=== PATIENT | female | born 1970 | race Caucasian/White ===

== ENCOUNTER 2017-03-24 20:04 | Emergency (ER) | payer OTHER ==
[2017-03-24 20:29] VITALS: BP 153/79; PULSE 81; RESP 16; TEMP 98.3
[2017-03-24] MEDS ORDERED: HYDROcodone/APAP 5-325MG 1 EACH TAB PO STA (20:40)
--- NOTE | 2017-03-24 20:44 | ED ---
Lower Extremity Injury HPI - General Source: patient, RN notes reviewed Mode of arrival: wheelchair Limitations: no limitations - History of Present Illness MD Complaint: foot injury <Yovany Ware - Last Filed: 03/24/17 21:23> <Nathan Mcclain - Last Filed: 03/25/17 21:29> - General Chief Complaint: Extremity Injury, Lower Stated Complaint: broken foot/foot pain Time Seen by Provider: 03/24/17 20:36 - History of Present Illness Initial Comments: This is a pleasant 39-year-old female presents emergency department after being stopped on her right foot by a horse. Patient states this happened about 7 PM. Patient cannot put any weight on the foot. Pain is sharp in nature, no radiation, movement and attempted ambulation exacerbates the pain. Rest does alleviate the pain. Patient denies any other injuries. This is the patient's animal. Patient denies any numbness or tingling. No distal or proximal injuries. (Yovany Ware) - Related Data Home Medications Medication Instructions Recorded Confirmed Atenolol [Tenormin] 25 mg PO DAILY 03/24/17 03/24/17 Ibuprofen [Motrin] 200 - 400 mg PO DAILY PRN 03/24/17 03/24/17 Loratadine/Pseudoephedrine 1 tab PO Q12HR PRN 03/24/17 03/24/17 [Alavert D-12 Allergy-Sinus Tab] Multivitamins, Thera [Multivitamin 1 tab PO DAILY 03/24/17 03/24/17 (formulary)] Seasonale Control 1 tab PO DAILY 03/24/17 03/24/17 Previous Rx's Medication Instructions Recorded HYDROcodone/APAP 5-325MG [[place] 5] 1 each PO Q4HR PRN #20 tab 03/24/17 Allergies Allergy/AdvReac Type Severity Reaction Status Date / Time meperidine [From Demerol] AdvReac Unknown Verified 03/24/17 20:38 Review of Systems ROS Other: All systems not noted in ROS Statement are negative. <Yovany Ware - Last Filed: 03/24/17 21:23> ROS Other: All systems not noted in ROS Statement are negative. <Nathan Mcclain - Last Filed: 03/25/17 21:29> ROS Statement: Those systems with pertinent positive or pertinent negative responses have been documented in the HPI. Past Medical History Past Medical History: No Reported History History of Any Multi-Drug Resistant Organisms: None Reported Past Surgical History: Section Additional Past Surgical History / Comment(s): pneumothorax Smoking Status: Never smoker Past Alcohol Use History: None Reported Past Drug Use History: None Reported <Yovany Ware - Last Filed: 03/24/17 21:23> General Exam Limitations: no limitations General appearance: alert, in distress Head exam: Present: atraumatic, normocephalic, normal inspection Eye exam: Present: normal appearance, EOMI Neck exam: Present: normal inspection, full ROM Respiratory exam: Present: normal lung sounds bilaterally. Absent: respiratory distress, wheezes, rales, rhonchi, stridor Cardiovascular Exam: Present: regular rate, normal rhythm, normal heart sounds. Absent: systolic murmur, diastolic murmur, rubs, gallop, clicks Right Ankle exam: Present: normal inspection, full ROM. Absent: tenderness Foot/Toe exam: Present: tenderness, ecchymosis. Absent: normal inspection, full ROM, swelling, abrasion, laceration, deformity, crepitus, dislocation, erythema, foreign body, calcaneal tenderness, tenderness at base of 5th metatarsal, nail avulsion, subungual hematoma Neurovascular tendon exam: Present: no vascular compromise. Absent: pulse deficit, abnormal cap refill, motor deficit, sensory deficit, tendon deficit, extremity cold to touch, pallor, decreased fine/light touch, foot drop, peroneal nerve deficit, significant pain with passive ROM of distal joint Neurological exam: Present: alert, oriented X3, CN II-XII intact, other ( Patient unable to ambulate). Absent: motor sensory deficit Psychiatric exam: Present: normal affect, normal mood Skin exam: Present: warm, dry, intact, normal color. Absent: rash <Yovany Ware - Last Filed: 03/24/17 21:23> <Nathan Mcclain - Last Filed: 03/25/17 21:29> - General Exam Comments Initial Comments: Social well-developed, well-nourished 47-year-old female in moderate distress due to pain (Yovany Ware) Procedures <Yovany Ware - Last Filed: 03/24/17 21:23> <Nathan Mcclain - Last Filed: 03/25/17 21:29> - Procedures Initial comment: Patient placed in a short leg OCL splint. Posterior mold. Distal neurovascular status intact post-application. (Yovany Ware) Medical Decision Making - Differential Diagnosis Fracture versus contusion <Yovany Ware - Last Filed: 03/24/17 21:23> <Nathan Mcclain - Last Filed: 03/25/17 21:29> - Medical Decision Making Foot fracture versus foot contusion discuss signs and symptoms of compartment syndrome. Discuss follow-up and return parameters (Yovany Ware) I saw this patient in conjunction with the physician marketing assistant. I performed independent history and physical exam. Agree with case management. I also participated in the splint placement. (Nathan Mcclain) - Radiology Data Patient has cortical irregularities of the proximal second, third, and fourth metatarsal bones. No other fracture noted by me. Awaiting radiology interpretation. (Yovany Ware) Disposition Time of Disposition: 21:24 <Yovany Ware - Last Filed: 03/24/17 21:23> <Nathan Mcclain - Last Filed: 03/25/17 21:29> Clinical Impression: Closed fracture of second metatarsal bone of right foot, Closed fracture of third metatarsal bone of right foot, Closed fracture of fourth metatarsal of right foot Disposition: HOME SELF-CARE Condition: Good Instructions: Crutch Instructions (ED), Foot Fracture in Adults (ED) Additional Instructions: Follow-up with the orthopedic physician on Monday as directed. Return to the ER immediately if numbness or tingling develops or the toes changed color. Return to the ER at once if the symptoms worsen or problems or difficulties arise. Prescriptions: HYDROcodone/APAP 5-325MG [[place] 5] 1 each PO Q4HR PRN #20 tab PRN Reason: Pain Referrals: Jere Martin MD [STAFF PHYSICIAN] - 03/27/17
--- NOTE | 2017-03-24 21:14 | XR ---
EXAMINATION TYPE: XR foot complete RT DATE OF EXAM: 03/24/2017 COMPARISON: NONE HISTORY: Pain, horse stepped on foot TECHNIQUE: Three-view right foot FINDINGS: Transverse fractures of the proximal metaphysis of the second third and fourth digits are p resent. Clinical correlation for Lisfranc fracture should be performed. Fractures appear nondisplaced . Soft tissues appear normal. IMPRESSION: 1. Clinical correlation recommended for Lisfranc fracture. Transverse fractures of the second third and fourth proximal metatarsal are present.
== END 2017-03-24 21:27 | disposition home or self-care (01) ==
LOC: EC 20:04
DX: S92.331A Displaced fracture of third metatarsal bone, right foot, initial encounter for closed fracture (principal); S92.341A Displaced fracture of fourth metatarsal bone, right foot, initial encounter for closed fracture; Z79.899 Other long term (current) drug therapy; Z79.3 Long term (current) use of hormonal contraceptives; Z88.5 Allergy status to narcotic agent; X58.XXXA Exposure to other specified factors, initial encounter
CPT/HCPCS: 29515; 99283

== ENCOUNTER 2018-02-26 13:11 | Emergency (ER) | payer OTHER ==
[2018-02-26] MEDS ORDERED: MORPHINE SULFATE 4 MG/ML SYRINGE IV STA (14:30)
[2018-02-26] MEDS ORDERED: SODIUM CHLORIDE 0.9% 500 ML IV STA (14:30)
[2018-02-26] MEDS ORDERED: SODIUM CHLORIDE 0.9% 1,000 ML IV STA (14:30)
[2018-02-26] MEDS ORDERED: METOCLOPRAMIDE 5 MG/ML 2 ML VIAL IVP STA (14:30)
--- NOTE | 2018-02-26 14:34 | ED ---
General Adult HPI - General Chief complaint: Headache Stated complaint: headache Time Seen by Provider: 02/26/18 14:18 Source: patient Mode of arrival: ambulatory Limitations: no limitations - History of Present Illness Initial comments: 48 years O female presents with a headache, headache started 3 the morning, she has no history of migraines denies any trauma to the head she does have a family history of brain aneurysms did try Excedrin and Motrin at home without great deal of benefit also complaining about some discomfort in the epigastric area she said is not pain she feels just nauseous and some pressure in her abdomen. No diarrhea no constipation she has no prior history of abdominal surgeries him in review of system is unremarkable - Related Data Home Medications Medication Instructions Recorded Confirmed Atenolol [Tenormin] 25 mg PO DAILY 03/24/17 02/26/18 Seasonale Control 1 tab PO DAILY 03/24/17 02/26/18 buPROPion HCL [Wellbutrin XL] 300 mg PO DAILY 02/26/18 02/26/18 Previous Rx's Medication Instructions Recorded Amoxicillin 500 mg PO Q8H #30 capsule 02/26/18 predniSONE 20 mg PO DAILY #5 tab 02/26/18 Allergies Allergy/AdvReac Type Severity Reaction Status Date / Time meperidine [From Demerol] AdvReac Unknown Verified 02/26/18 14:21 Review of Systems ROS Statement: Those systems with pertinent positive or pertinent negative responses have been documented in the HPI. ROS Other: All systems not noted in ROS Statement are negative. Past Medical History Past Medical History: No Reported History History of Any Multi-Drug Resistant Organisms: None Reported Past Surgical History: Section Additional Past Surgical History / Comment(s): pneumothorax Past Psychological History: Anxiety, Depression Smoking Status: Never smoker Past Alcohol Use History: None Reported Past Drug Use History: None Reported General Exam - General Exam Comments Initial Comments: General: The patient is awake and alert, in mild distress from headache Skin: Skin is warm and dry and no rashes or lesions are noted. Eye: Pupils are equal, round and reactive to light, extra-ocular movements are intact; there is normal conjunctiva bilaterally. Ears, nose, mouth and throat: signs of sinusitis, over the frontal and right maxillary sinus Neck: The neck is supple, there is no tenderness, no signs of any meningitis or neck stiffness noticed Cardiovascular: There is a regular rate and rhythm. No murmur, rub or gallop is appreciated. Respiratory: To auscultation bilateral, no wheezing no rhonchi no distress respiratory acosta noticed Gastrointestinal: Soft, non-distended, bowel sounds no guarding no rebounds no signs of any peritonitis Back: There is no tenderness to palpation in the midline. There is no obvious deformity. Musculoskeletal: Normal ROM, no tenderness, There is no pedal edema. There is no calf tenderness or swelling. No cords were appreciated. Neurological: CN II-XII intact, Cranial nerves III through XII are intact. There are no obvious motor or sensory deficits. Coordination appears grossly intact. Speech is normal. Psychiatric: Cooperative, appropriate mood & affect, normal judgment. Limitations: no limitations Course Vital Signs 02/26/18 14:07 Temperature 97.7 F Pulse Rate 74 Respiratory 18 Rate Blood Pressure 136/81 O2 Sat by Pulse 100 Oximetry Abdomen she is reassessed at term 1615, head CT is normal chest x-rays unremarkable no free air under under the diaphragm noticed CBC, compressive metabolic panel, C-reactive protein are all within normal range. She feels lot better she did go home I do suspect sinusitis she is tender over frontal as well as right maxillary sinus she be given a course of amoxicillin 500 mg 3 times a day for next 10 days and prednisone 20 mg daily for next 5 days and she is advised to take Tylenol 1 g by mouth every 8 as needed Medical Decision Making - Lab Data Result diagrams: 02/26/18 14:44 02/26/18 14:44 Lab Results 02/26/18 02/26/18 Range/Units 14:44 14:44 WBC 8.9 (3.8-10.6) k/uL RBC 4.96 (3.80-5.40) m/uL Hgb 14.6 (11.4-16.0) gm/dL Hct 42.5 (34.0-46.0) % MCV 85.7 (80.0-100.0) fL MCH 29.4 (25.0-35.0) pg MCHC 34.3 (31.0-37.0) g/dL RDW 12.5 (11.5-15.5) % Plt Count 291 (150-450) k/uL Neutrophils % 75 % Lymphocytes % 15 % Monocytes % 6 % Eosinophils % 1 % Basophils % 1 % Neutrophils # 6.7 (1.3-7.7) k/uL Lymphocytes # 1.3 (1.0-4.8) k/uL Monocytes # 0.6 (0-1.0) k/uL Eosinophils # 0.1 (0-0.7) k/uL Basophils # 0.1 (0-0.2) k/uL Sodium 141 (137-145) mmol/L Potassium 3.7 (3.5-5.1) mmol/L Chloride 102 (98-107) mmol/L Carbon Dioxide 25 (22-30) mmol/L Anion Gap 14 mmol/L BUN 14 (7-17) mg/dL Creatinine 0.78 (0.52-1.04) mg/dL Est GFR (CKD-EPI)AfAm >90 (>60 ml/min/1.73 sqM) Est GFR (CKD-EPI)NonAf 90 (>60 ml/min/1.73 sqM) Glucose 86 (74-99) mg/dL Calcium 9.2 (8.4-10.2) mg/dL Total Bilirubin 0.6 (0.2-1.3) mg/dL AST 27 (14-36) U/L ALT 30 (9-52) U/L Alkaline Phosphatase 69 (38-126) U/L C-Reactive Protein 9.0 (<10.0) mg/L Total Protein 7.1 (6.3-8.2) g/dL Albumin 4.2 (3.5-5.0) g/dL Amylase 63 (30-110) U/L Lipase 66 (23-300) U/L Disposition Clinical Impression: Headache, Abdominal pain, Sinusitis Disposition: HOME SELF-CARE Condition: Good Instructions: Acute Headache (ED), Abdominal Pain (ED) Prescriptions: Amoxicillin 500 mg PO Q8H #30 capsule predniSONE 20 mg PO DAILY #5 tab Is patient prescribed a controlled substance at d/c from ED?: No If prescribed controlled substance>3 days was MAPS reviewed?: No When asked, does pt state using other controlled substances?: No Referrals: Christ,Felipa, DO [Primary Care Provider] - 1-2 days
[2018-02-26 15:07] LABS: Basophils # (A) 0.1 k/uL (0-0.2); Basophils % (A) 1 %; Eosinophils # (A) 0.1 k/uL (0-0.7); Eosinophils % (A) 1 %; HCT 42.5 % (34.0-46.0); HGB 14.6 gm/dL (11.4-16.0); Lymphocytes # (A) 1.3 k/uL (1.0-4.8); Lymphocytes % (A) 15 %; MCH 29.4 pg (25.0-35.0); MCHC 34.3 g/dL (31.0-37.0); MCV 85.7 fL (80.0-100.0); Monocytes # (A) 0.6 k/uL (0-1.0); Monocytes % (A) 6 %; Neutrophils # (A) 6.7 k/uL (1.3-7.7); Neutrophils % (A) 75 %; Platelet Count 291 k/uL (150-450); RBC 4.96 m/uL (3.80-5.40); RDW 12.5 % (11.5-15.5); WBC 8.9 k/uL (3.8-10.6)
[2018-02-26 15:15] LABS: ALT 30 U/L (9-52); AST 27 U/L (14-36); Albumin 4.2 g/dL (3.5-5.0); Alkaline Phosphatase 69 U/L (38-126); Amylase 63 U/L (30-110); Anion Gap 14 mmol/L; Blood Urea Nitrogen 14 mg/dL (7-17); Calcium 9.2 mg/dL (8.4-10.2); Carbon Dioxide 25 mmol/L (22-30); Chloride 102 mmol/L (98-107); Glucose 86 mg/dL (74-99); Lipase 66 U/L (23-300); Potassium 3.7 mmol/L (3.5-5.1); Sodium 141 mmol/L (137-145); Total Bilirubin 0.6 mg/dL (0.2-1.3); Total Protein 7.1 g/dL (6.3-8.2)
--- NOTE | 2018-02-26 15:30 | XR ---
EXAMINATION TYPE: XR KUB DATE OF EXAM: 02/26/2018 COMPARISON: NONE HISTORY: abdominal pain TECHNIQUE: One view abdominal series FINDINGS: The osseous structures are intact. The bowel gas pattern is nonspecific. Lung bases are clear. Cupola Tapper Helper heather deformity of the right rib cage. IMPRESSION: 1. Nonspecific abdomen.
--- NOTE | 2018-02-26 16:08 | CT ---
EXAMINATION TYPE: CT brain wo con DATE OF EXAM: 02/26/2018 COMPARISON: NONE HISTORY: Headache today. CT DLP: 1047.2 mGycm. Automated Exposure Control for Dose Reduction was Utilized. TECHNIQUE: CT scan of the head is performed without contrast. FINDINGS: There is no acute intracranial hemorrhage, mass effect, or midline shift identified. The dural reflection is seen along the left temporal lobe. The ventricles and sulci are within normal li mits in size. The globes are intact and the visualized sinuses are clear. IMPRESSION: No acute intracranial hemorrhage, mass effect, or midline shift is seen.
[2018-02-26 16:40] VITALS: TEMP 97.2
[2018-02-26 16:50] VITALS: BP 122/77; PULSE 74; RESP 18
== END 2018-02-26 16:50 | disposition home or self-care (01) ==
LOC: EC 13:11
DX: J32.9 Chronic sinusitis, unspecified (principal); R10.9 Unspecified abdominal pain; F41.9 Anxiety disorder, unspecified; F32.9 Major depressive disorder, single episode, unspecified; Z79.899 Other long term (current) drug therapy; Z88.5 Allergy status to narcotic agent
CPT/HCPCS: 36415; 80053; 82150; 83690; 85025; 86140; 74018; 70450; 99284; 96374; 96375; 96361 ×2; J2270; J2765

== ENCOUNTER → 2019-07-25 | Outpatient (CLI) | payer BC ==
--- NOTE | 2019-08-01 14:10 | MM ---
Reason for exam: screening (asymptomatic). Last mammogram was performed 1 year and 4 months ago. History: Took hormonal contraceptives for 20 years. Physical Findings: A clinical breast exam by your physician is recommended on an annual basis and results should be correlated with mammographic findings. MG 3D Screening Mammo W/Cad Bilateral CC and MLO view(s) were taken. Prior study comparison: March 10, 2018, mammogram, performed at [facility]. January 24, 2018, mammogram, performed at [facility]. October 12, 2015, mammogram, performed at [facility]. April 29, 2013, mammogram, performed at [facility]. The breast tissue is heterogeneously dense. This may lower the sensitivity of mammography. No suspicious abnormality. No significant changes when compared with prior studies. ASSESSMENT: Negative, BI-RAD 1 RECOMMENDATION: Routine screening mammogram of both breasts in 1 year.
== END | disposition home or self-care (01) ==
LOC: RADMAMWWP 12:59
PROVIDERS: ATTEND Family Medicine
DX: Z12.31 Encounter for screening mammogram for malignant neoplasm of breast (principal)
CPT/HCPCS: 77063; 77067

== ENCOUNTER 2021-04-27 17:10 | Emergency (ER) | payer BC ==
[2021-04-27 17:14] VITALS: RESP 18; TEMP 98.1
--- NOTE | 2021-04-27 18:17 | XR ---
EXAMINATION TYPE: XR hand complete LT DATE OF EXAM: 04/27/2021 COMPARISON: NONE HISTORY: Trauma. Pain. TECHNIQUE: 3 views FINDINGS: I see no fracture nor dislocation. Joint spaces are normal. I see no definite radiopaque fo reign body. Metacarpals are intact. IMPRESSION: No acute abnormality of the left hand.
[2021-04-27] MEDS ORDERED: DIPH,PERTUS(ACELL)TETVAC-LF 0.5 ML VIAL IM ONE (18:30)
--- NOTE | 2021-04-27 18:42 | ED ---
Wound/Laceration HPI - General Chief Complaint: Wound/Laceration Stated Complaint: Lt Hand Injury Time Seen by Provider: 04/27/21 17:16 Source: patient Mode of arrival: ambulatory Limitations: no limitations - History of Present Illness Initial Comments: 51-year-old female presents to the emergency department with a presented to the emergency department with a chief complaint of left hand injury. Patient reports she was using a screwdriver to pull a staple open. States she missed, and he went directly into the the base of her thumb. She reports nausea has pain in the region. States the pain is exacerbated whenever she is moving her fingers. She denies any paresthesias. States her tetanus is not up-to-date. Pain is alleviated at rest. She states it is sharp in nature. - Related Data Home Medications Medication Instructions Recorded Confirmed Seasonale Control 1 tab PO DAILY 03/24/17 02/26/18 atenoloL [Tenormin] 25 mg PO DAILY 03/24/17 02/26/18 buPROPion HCL [Wellbutrin XL] 300 mg PO DAILY 02/26/18 02/26/18 Previous Rx's Medication Instructions Recorded Amoxicillin 500 mg PO Q8H #30 capsule 02/26/18 predniSONE [Deltasone] 20 mg PO DAILY #5 tab 02/26/18 Cephalexin [Keflex] 500 mg PO Q6HR #20 cap 04/27/21 Allergies Allergy/AdvReac Type Severity Reaction Status Date / Time meperidine [From Demerol] AdvReac Unknown Verified 04/27/21 17:14 Review of Systems ROS Statement: Those systems with pertinent positive or pertinent negative responses have been documented in the HPI. ROS Other: All systems not noted in ROS Statement are negative. Past Medical History Past Medical History: No Reported History History of Any Multi-Drug Resistant Organisms: None Reported Past Surgical History: Section Additional Past Surgical History / Comment(s): pneumothorax Past Psychological History: Anxiety, Depression Smoking Status: Never smoker Past Alcohol Use History: None Reported Past Drug Use History: None Reported General Exam Limitations: no limitations General appearance: alert, in no apparent distress Head exam: Present: atraumatic, normocephalic, normal inspection Eye exam: Present: normal appearance, PERRL, EOMI Pupils: Present: normal accommodation ENT exam: Present: normal exam, normal oropharynx, mucous membranes moist Neck exam: Present: normal inspection, full ROM. Absent: tenderness, lymphadenopathy Respiratory exam: Present: normal lung sounds bilaterally. Absent: respiratory distress Cardiovascular Exam: Present: regular rate, normal rhythm, normal heart sounds Extremities exam: Present: full ROM, tenderness (Tenderness at the injury site), normal capillary refill, other (Sensation intact in the left hand). Absent: normal inspection (Puncture wound on the ventral aspect of the left hand near the base of the thumb.), pedal edema, joint swelling, calf tenderness Back exam: Present: normal inspection, full ROM Neurological exam: Present: alert, oriented X3, normal gait Psychiatric exam: Present: normal affect, normal mood Skin exam: Present: warm, dry, intact, normal color Course Vital Signs 04/27/21 04/27/21 17:10 18:45 Temperature 98.1 F Pulse Rate 62 86 Respiratory 18 18 Rate Blood Pressure 113/76 114/82 O2 Sat by Pulse 99 99 Oximetry Medical Decision Making - Medical Decision Making 51-year-old female presented emergency department with a chief complaint of a puncture wound. On physical examination, patient has a small puncture wound, about 5 mm. No laceration repaired necessary at this time. Patient will be started on Keflex and tetanus was updated. Injury site was thoroughly irrigated with normal saline. Advised to follow-up with orthopedic surgeon. Strict return parameters were thoroughly discussed the patient is attending agreeable. Case discussed with physician. Disposition Clinical Impression: Puncture wound, hand Disposition: HOME SELF-CARE Condition: Stable Instructions (If sedation given, give patient instructions): Puncture Wound (DC) Additional Instructions: Take prescribed medication as directed. Follow-up with project specialist. Return to emergency department if symptoms worsen. Prescriptions: Cephalexin [Keflex] 500 mg PO Q6HR #20 cap Is patient prescribed a controlled substance at d/c from ED?: No Referrals: Felipa Polo DO [Primary Care Provider] - 1-2 days Reynold Arenas DO [Doctor of Osteopathic Medicine] - 1-2 days Time of Disposition: 18:42
[2021-04-27 18:45] VITALS: BP 114/82; PULSE 86
== END 2021-04-27 18:47 | disposition home or self-care (01) ==
LOC: EC 17:10
DX: S61.432A Puncture wound without foreign body of left hand, initial encounter (principal); Z88.5 Allergy status to narcotic agent; Z23 Encounter for immunization; W27.0XXA Contact with workbench tool, initial encounter; Y92.049 Unspecified place in boarding-house as the place of occurrence of the external cause
CPT/HCPCS: 90471; 90715; 99283

== ENCOUNTER → 2022-03-15 | Outpatient (CLI) | payer BC ==
--- NOTE | 2022-03-15 19:06 | CA ---
Stress Echo Report Radha Lopez Age: 52 Gender: F : 1970 Exam Date: 03/15/2022 09:10 Exam Location: [place] Stress Ht (in): 65 Wt (lb): 160 Ordering Physician: Ricardo Huang DO Referring Physician: RICARDO HUANG MD,, Coil Taper: Lorna Saenz RDCS Technologist Procedure CPT: Indication: R07.9 CHEST PAIN ICD-9 Codes: Rhythm: Patient History: Cardiac Medications: Medications in past 24 hours: Contrast: Stress Results Protocol: Mumtaz Total dose(mL): Exercise Duration (min:sec): Max ST Depression (mm): Angina Score: Moore Score: METS: 11.3 Resting HR: 70 Resting BP: 108 / 77 Peak HR: 149 Peak BP: / 88 Max Predicted HR: 167 89 % Max Predicted HR Target HR: 142 Double Product: Stress Summary: BP Response: Reason for Termination: Pt reached target heart rate Cardiac Symptoms: ECG Analysis Resting ECG: Stress ECG: Arrhythmia: Echo Analysis Resting Echo: Peak Echo Analysis: MEASUREMENTS (Male/Female) Normal Values CONCLUSIONS Baseline heart rate 70 beats a minute, Baseline blood pressure 108/77 mmHg Baseline per EKG showed normal sinus rhythm normal chronic intervals Patient exercised on a Mumtaz protocol for 10 minutes She achieved a peak heart rate of 149 beats a minute. Normal blood pressure response to exercise Peak blood pressure 135/92 mmHg There were no ECG evidence for ischemia No arrhythmias noted Baseline 2-D echo which showed normal LV systolic function without segmental wall motion abnormalities At peak exercise there is excellent augmentation overall LV contractility without development of any wall motion abnormalities It recovery regional global LV systolic function with normal Dr. Clifton Mcdermott MD (Electronically Signed) Final Date: 15 Mar 2022 19:04
== END | disposition home or self-care (01) ==
LOC: RADECHMAIN 08:36
PROVIDERS: ATTEND Internal Medicine
DX: R07.9 Chest pain, unspecified (principal)
CPT/HCPCS: 93306; 93351

== ENCOUNTER → 2025-04-21 | Outpatient (CLI) | payer BC ==
--- NOTE | 2025-04-21 17:12 | MM ---
Reason for Exam: Screening (asymptomatic). Last mammogram was performed 5 year(s) and 8 month(s) ago. Patient History: Menarche at age 16. First Full-Term at age 26. Postmenopausal. Patient used Hormonal Contraceptives for 20 years. Risk Values: Brittnee 5 year model risk: 1.2%. NCI Lifetime model risk: 8.1%. Prior Study Comparison: 01/24/2018 Screening Mammogram, [facility] . 03/10/2018 Screening Mammogram, [facility] . 07/25/2019 Bilateral Screening Mammogram, [facility]. Tissue Density: The breasts are almost entirely fatty. Findings: Analyzed By CAD. There is no suspicious group of microcalcifications or new suspicious mass in either breast. Overall Assessment: Negative, BI-RAD 1 Management: Screening Mammogram of both breasts in 1 year. Patient should continue monthly self-breast exams. A clinical breast exam by your physician is recommended on an annual basis. This exam should not preclude additional follow-up of suspicious palpable abnormalities. Note on Brittnee scores and lifetime risk: 1. A Brittnee score greater than 3% is considered moderate risk. If this is the case, consider specialist referral to assess eligibility for a risk reducing agent. 2. If overall lifetime risk for the development of breast cancer is 20% or higher, the patient may qualify for future screening with alternating mammogram and breast MRI. [facility], , 04/21/2025 5:09 PM. Electronically signed and approved by: Timbo Berry M.D. Radiologist
== END | disposition home or self-care (01) ==
LOC: RADMAMWWP 09:23
PROVIDERS: ATTEND Family Medicine
DX: Z12.31 Encounter for screening mammogram for malignant neoplasm of breast (principal); R92.313 Mammographic fatty tissue density, bilateral breasts; Z78.0 Asymptomatic menopausal state; Z92.0 Personal history of contraception
CPT/HCPCS: 77063; 77067